=== PATIENT | female | born 1935 | race Caucasian/White ===

== ENCOUNTER 2021-03-04 04:19 | Inpatient (IN) ==
[2021-03-04] MEDS ORDERED: Naloxone 0.4 MG/ML INJ IVP PRN (09:56)
[2021-03-04] MEDS: Ringers Solution, Lactated 1,000 ML IVC SCH ×2 (10:32→23:00)
[2021-03-04] MEDS: Pantoprazole 40 MG VIAL IVP SCH ×2 (10:32→18:25)
[2021-03-04 10:42] LABS: Basophils % 0.4 %; Eosinophils # 0.1 K/mcL (0.0-0.6); Eosinophils % 1.3 %; Hematocrit 35.2 % (35.3-44.9); Hemoglobin 10.5 g/dL (11.5-15.4); Immature Granulocytes % 0.4 % (0-4); Lymphocytes # 1.8 K/mcL (0.6-4.6); Lymphocytes % 19.7 %; Mean Corpuscular HGB Conc 29.8 g/dL (31.6-35.5); Mean Corpuscular Volume 93.9 fL (83.0-100.0); Mean Platelet Volume 10.3 fL (9.4-12.4); Monocytes # 0.9 K/mcL (0.0-1.3); Monocytes % 10.2 %; Platelet Count 212 K/mcL (140-400); Red Blood Count 3.75 M/mcL (3.82-4.97); Red Cell Distribution Width 13.3 % (11.5-14.5); White Blood Count 8.9 K/mcL (4.3-11.1)
[2021-03-04 11:01] LABS: Calcium 8.6 mg/dL (8.6-10.3)
[2021-03-04] MEDS ORDERED: Acetaminophen 325 MG TABLET PO PRN (13:52)
[2021-03-04] MEDS: *HR* HYDROcodone/Acet 5/325 mg TABLET PO SCH ×2 (14:48→20:50)
[2021-03-04] MEDS: QUEtiapine Fumarate 25 MG TABLET PO SCH ×2 (15:00→20:50)
[2021-03-04 18:11] LABS: Hematocrit 34.2 % (35.3-44.9); Hemoglobin 10.4 g/dL (11.5-15.4)
[2021-03-04] MEDS: OLANZapine 5 MG TAB.RAPDIS PO SCH (20:49)
[2021-03-04] MEDS: Mirtazapine 15 MG TABLET PO SCH (20:50)
[2021-03-05 03:36] LABS: BUN/Creatinine Ratio 17 (6-26); Blood Urea Nitrogen 17 mg/dL (8-23); Calcium 9.4 mg/dL (8.6-10.3); Carbon Dioxide 22 mEq/L (23-29); Chloride 108 mEq/L (98-107); Glucose 103 mg/dL (70-105); Osmolality,Calculated 294 (280-300); Potassium 4.1 mEq/L (3.5-5.1); Sodium 141 mEq/L (136-145); eGFR For African Americans > 60 (> 60); eGFR For Non-African Americans 53 (> 60)
[2021-03-05] MEDS: Pantoprazole 40 MG VIAL IVP SCH (05:02)
[2021-03-05 06:14] LABS: Basophils % 0.4 %; Eosinophils # 0.2 K/mcL (0.0-0.6); Eosinophils % 1.7 %; Hemoglobin 11.5 g/dL (11.5-15.4); Immature Granulocytes % 0.3 % (0-4); Lymphocytes # 1.8 K/mcL (0.6-4.6); Mean Corpuscular HGB Conc 32.9 g/dL (31.6-35.5); Mean Corpuscular Hemoglobin 28.3 pg (28.0-33.3); Mean Corpuscular Volume 86.2 fL (83.0-100.0); Mean Platelet Volume 10.9 fL (9.4-12.4); Monocytes % 10.2 %; Neutrophils # 6.5 K/mcL (1.6-8.9); Platelet Count 242 K/mcL (140-400); Red Blood Count 4.06 M/mcL (3.82-4.97); Red Cell Distribution Width 13.5 % (11.5-14.5); Segmented Neutrophils % 68.4 %; White Blood Count 9.6 K/mcL (4.3-11.1)
[2021-03-05] MEDS: cefTRIAXone 1,000 MG in Water for inj. (sterile) 10 ML IVP SCH (08:30)
[2021-03-05] MEDS: polyethylene glycoL 3350 17 GM POWD.PACK PO SCH (08:30)
[2021-03-05] MEDS: Loratadine 10 MG TABLET PO SCH (08:31)
[2021-03-05] MEDS: hydroCHLOROthiazide 25 MG TABLET PO SCH (08:31)
[2021-03-05] MEDS: *HR* HYDROcodone/Acet 5/325 mg TABLET PO SCH (08:32)
[2021-03-05] MEDS: QUEtiapine Fumarate 25 MG TABLET PO SCH ×2 (08:32→20:06)
[2021-03-05] MEDS: Ringers Solution, Lactated 1,000 ML IVC SCH (12:04)
[2021-03-05] MEDS ORDERED: Isovue-370 500 ML BOTTLE IVP ONE (16:21)
[2021-03-05] MEDS: OLANZapine 5 MG TAB.RAPDIS PO SCH (20:05)
[2021-03-05] MEDS: Mirtazapine 15 MG TABLET PO SCH (20:05)
[2021-03-05] MEDS: Lactobacillus 1 EACH CAP.SPRINK PO SCH (20:06)
[2021-03-05] MEDS ORDERED: Apixaban 2.5 MG TABLET PO SCH (21:00)
[2021-03-06] MEDS: *HR* HYDROcodone/Acet 5/325 mg TABLET PO SCH ×2 (02:02→09:36)
[2021-03-06] MEDS: QUEtiapine Fumarate 25 MG TABLET PO SCH ×2 (02:02→09:36)
[2021-03-06] MEDS: Lactobacillus 1 EACH CAP.SPRINK PO SCH ×2 (02:02→09:37)
[2021-03-06] MEDS: Mirtazapine 15 MG TABLET PO SCH (02:02)
[2021-03-06] MEDS: OLANZapine 5 MG TAB.RAPDIS PO SCH (02:03)
[2021-03-06 05:56] LABS: Hematocrit 34.5 % (35.3-44.9); Hemoglobin 10.8 g/dL (11.5-15.4); Mean Corpuscular HGB Conc 31.3 g/dL (31.6-35.5); Mean Corpuscular Hemoglobin 27.3 pg (28.0-33.3); Mean Corpuscular Volume 87.1 fL (83.0-100.0); Mean Platelet Volume 10.4 fL (9.4-12.4); Platelet Count 256 K/mcL (140-400); Red Blood Count 3.96 M/mcL (3.82-4.97); Red Cell Distribution Width 13.6 % (11.5-14.5); White Blood Count 11.3 K/mcL (4.3-11.1)
[2021-03-06 06:27] LABS: Calcium 9.1 mg/dL (8.6-10.3); Magnesium 1.5 mg/dL (1.6-2.6); Phosphorous 3.7 mg/dL (2.7-4.5); Potassium 3.6 mEq/L (3.5-5.1)
[2021-03-06 06:44] LABS: Folate > 22.3 ng/mL (3.0-16.0); Vitamin B12 229 pg/mL (250-1100)
[2021-03-06] MEDS ORDERED: amLODIPine 5 MG TABLET PO SCH (09:00)
[2021-03-06] MEDS ORDERED: Iron Sucrose Complex 400 MG in 0.9 % Sodium Chloride 250 ML IVPB ONE (09:00)
[2021-03-06] MEDS ORDERED: Cyanocobalamin (B-12) 1,000 MCG TABLET PO SCH (09:00)
[2021-03-06] MEDS: Loratadine 10 MG TABLET PO SCH (09:36)
[2021-03-06] MEDS: hydroCHLOROthiazide 25 MG TABLET PO SCH (09:36)
[2021-03-06] MEDS: polyethylene glycoL 3350 17 GM POWD.PACK PO SCH (09:37)
[2021-03-06] MEDS: cefTRIAXone 1,000 MG in Water for inj. (sterile) 10 ML IVP SCH (09:37)
[2021-03-06 10:26] VITALS: TEMP 98.6
[2021-03-06 16:59] VITALS: BP 122/70; PULSE 78; O2SAT 95
[2021-03-07] MEDS ORDERED: amLODIPine 5 MG TABLET PO SCH (09:00)
== END 2021-03-06 18:29 | DRG 690 ==
LOC: 3ANU → SUATTDRO 09:29
PROVIDERS: ADMIT Internal Medicine; ATTEND Internal Medicine